=== PATIENT | male | born 1950 | race Caucasian/White ===

== ENCOUNTER 2017-03-13 09:17 | Day surgery (SDC) | payer MEDICARE ==
[~2017-03-13 09:17] MED LIST: ACETAMINOPHEN 1,000 MG/100 ML BTL IV ONE; FAMOTIDINE 20MG TABLET PO ONE; MECLIZINE 25 MG TABLET PO ONE; METOCLOPRAMIDE 10 MG TABLET PO ONE; VANCOMYCIN HCL 1,000 MG in DEXTROSE 5 % IN WATER 250 ML IVPB ONE
[2017-03-13] MEDS ORDERED: LIDOCAINE 2% MDV (20MG/ML) 20ML VIAL IV ONE (09:18)
[2017-03-13] MEDS ORDERED: SUCCINYLCHOLINE 20 MG/ML 10ML IVP ONE (09:18)
[2017-03-13] MEDS ORDERED: PROPOFOL 10 MG/ML VIAL IV ONE (09:18)
[2017-03-13] MEDS ORDERED: METOCLOPRAMIDE HCL 10 MG/2 ML VIAL IVP ONE (09:18)
[2017-03-13] MEDS ORDERED: FENTANYL PF 100MCG/2ML VIAL IV ONE (09:18)
[2017-03-13] MEDS ORDERED: ONDANSETRON HCL IV 4 MG/2 ML VIAL IVP ONE (09:18)
[2017-03-13] MEDS ORDERED: LIDOCAINE 1% W/EPI 1:200,000 MPF 30ML SQ ONE (09:18)
[2017-03-13] MEDS ORDERED: MIDAZOLAM HCL 2MG/2ML VIAL IV ONE (09:18)
[2017-03-13] MEDS ORDERED: BUPIVACAINE 0.75% W/EPI MPF 30ML VIAL IVP ONE (09:18)
[2017-03-13 09:33] LABS: BASO % 0.3 % (0-6); HEMATOCRIT 41.3 % (42.0-52.0); HEMOGLOBIN 13.3 gm/dl (14.0-18.0); LYMPH % 17.3 % (16-45); MEAN CELL VOLUME 94.5 fl (81-97); MEAN CORPUSCULAR HEMOGLOBIN 30.4 pg (27-33); MEAN CORPUSCULAR HGB CONC 32.2 g/dl (32-36); MEAN PLATELET VOLUME 10.2 fl (7.4-10.4); MONO % 6.4 % (0-9); PLATELET COUNT 362 K/uL (130-400); RED BLOOD COUNT 4.37 M/uL (4.40-5.70); RED CELL DISTRIBUTION WIDTH 13.6 % (11.5-14.5); WHITE BLOOD COUNT W/O DIFF 9.4 K/uL (4.2-12.2)
[2017-03-13 09:48] LABS: BLOOD UREA NITROGEN 9 mg/dL (8-23)
[2017-03-13 09:49] LABS: CREATININE 0.6 mg/dL (0.7-1.2); EST GLOMERULAR FILTRATION RATE > 60 mL/min
[2017-03-13 09:51] LABS: GLUCOSE,RANDOM 111 mg/dL (74-109)
--- NOTE | 2017-03-16 17:56 | Operative Note ---
DATE OF SURGERY: 03/13/2017 PREOPERATIVE DIAGNOSIS: Chronic nonhealing ulcer, right hip. POSTOPERATIVE DIAGNOSIS: Chronic nonhealing ulcer, right hip. OPERATION: 1. Excision of chronic wound, right hip, with debridement and excision of entire sinus tract with local flap reconstruction. 2. I&D cultures and sensitivities of right hip. 3. Excision of chronic lesion, left ear, 2 cm. Surgeon: Jules Matson MD Anesthesia: General. Estimated Blood Loss: 50 mL DRAINS: 15 round Rafael. SPECIMENS: Deep tissue for aerobic and anaerobic cultures. Indications: The patient is a 66-year-old gentleman who was not immobile but developed a chronic wound of his right trochanter. Recent MRI dated 02/02/2017 shows no signs of osteomyelitis but a large wound with tracking. PROCEDURE: The patient was interviewed preoperatively. The operative plan was reviewed. All questions were answered. He was then taken to the operating room. Under satisfactory general anesthesia, he was placed right side up on inflated beanbag. All pressure points well padded and protected. We then prepped and draped in the usual sterile manner. Placed a soft plastic Yankauer sucker through the tract superiorly, inflated open to its very distal extent. We then excised all granulation tissue completely. The wound also tracked inferiorly but not as far. We then again placed the Yankauer there, inflated open, again excised all the granulation tissue. This did expose his greater trochanter but no bone. Once we were 100% certain we got all the granulation tissue out, we did take a deep piece and sent it for culture and sensitivity. Hemostasis was obtained using topical epinephrine and needle point cautery. After good hemostasis, we placed a 15 round Rafael. We then identified lateral border of I believe it was the gluteus devon and mobilized some of the lateral glut. We used this to fill the small amount of space. Once we had all space covered, we again placed the drain, secured it with nylon. We then closed any fascia with 2-0 Vicryl, deep tissue with 2-0 Vicryl, and the skin in 2 layers of 3-0 Monocryl. Sterile dressings were applied. He tolerated the procedure well without any complications. We then placed in supine again well padded under sterile conditions. Excised a chronic lesion from his left ear just inside the mid helix about 2 square cm, closed with 5-0 nylon pathology sent. Jules TRINH
== END 2017-03-13 15:10 | disposition home or self-care (01) ==
LOC: SUR 09:17
PROVIDERS: ATTEND Plastic Surgery
DX: L98.498 Non-pressure chronic ulcer of skin of other sites with other specified severity (principal); H61.0 Chondritis and perichondritis of external ear; E11.9 Type 2 diabetes mellitus without complications; Z87.891 Personal history of nicotine dependence; E78.00 Pure hypercholesterolemia, unspecified; G62.9 Polyneuropathy, unspecified; Z79.84 Long term (current) use of oral hypoglycemic drugs
CPT/HCPCS: 85025; 80048; 93005; 93010; 27047; 13100; 11442; 00300; J2405; J3370; J3010; J3490; J0330; J2765; J7060